=== PATIENT | female | born 1935 | race Native Hawaiian/Other Pacific Islander ===

== ENCOUNTER 2017-03-12 15:39 | Outpatient (CLI) | payer OTHER ==
[2017-03-12 16:18] LABS: PLATELET COUNT 359 K/uL (152-353)
[2017-03-12 16:35] LABS: POTASSIUM 4.8 mmol/L (3.6-5.2)
== END 2017-03-12 16:40 | disposition home or self-care (01) ==
LOC: LAB 15:39
PROVIDERS: Nurse Practitioner Family
DX: Z00.00 Encounter for general adult medical examination without abnormal findings (principal); E55.9 Vitamin D deficiency, unspecified; R53.83 Other fatigue; E83.42 Hypomagnesemia; D64.89 Other specified anemias; Z79.899 Other long term (current) drug therapy; Z51.81 Encounter for therapeutic drug level monitoring; R73.9 Hyperglycemia, unspecified
CPT/HCPCS: 80053; 80061; 82306; 82607; 83036; 84436; 84443; 85027

== ENCOUNTER 2017-12-24 15:49 | Outpatient (CLI) | payer OTHER ==
[2017-12-24 16:23] LABS: PLATELET COUNT 361 K/uL (152-353)
[2017-12-24 16:52] LABS: POTASSIUM 4.1 mmol/L (3.6-5.2)
== END 2017-12-24 22:14 | disposition home or self-care (01) ==
LOC: LAB 15:49
PROVIDERS: Nurse Practitioner Family
DX: M79.605 Pain in left leg (principal); E55.9 Vitamin D deficiency, unspecified; D64.89 Other specified anemias; R53.83 Other fatigue; E83.42 Hypomagnesemia; E78.4 Other hyperlipidemia; R79.89 Other specified abnormal findings of blood chemistry
CPT/HCPCS: 80053; 80061; 82306; 83036; 83735; 84436; 84443; 85027

== ENCOUNTER 2019-07-26 11:24 | Outpatient (CLI) | payer OTHER ==
[2019-07-26 11:49] LABS: PLATELET COUNT 335 K/uL (152-353)
[2019-07-26 12:00] LABS: POTASSIUM 4.3 mmol/L (3.6-5.2); SODIUM 141 mmol/L (136-145)
== END 2019-07-26 23:20 | disposition home or self-care (01) ==
LOC: LABW 11:24
PROVIDERS: Nurse Practitioner Family
DX: R91.1 Solitary pulmonary nodule (principal); L02.416 Cutaneous abscess of left lower limb; F41.1 Generalized anxiety disorder
CPT/HCPCS: 36415; 80053; 82550; 82553; 84484; 85027

== ENCOUNTER 2019-08-01 13:22 | Observation (INO) | payer OTHER ==
[~2019-08-01] VITALS: Ht 160 cm; Wt 71.7 kg
[2019-08-01 13:29] VITALS: BP 154/88; TEMP 97.9
[2019-08-01 14:34] LABS: PLATELET COUNT 349 K/uL (152-353)
[2019-08-01 14:46] LABS: POTASSIUM 3.9 mmol/L (3.6-5.2)
[2019-08-01 14:53] LABS: PARTIAL THROMBOPLASTIN TIME 37.4 SECONDS (24.5-33.6)
[2019-08-01 17:09] VITALS: BP 136/56; TEMP 98.4; Ht 160 cm; Wt 71.7 kg
[2019-08-01 19:15] VITALS: BP 152/84
[2019-08-01 19:45] VITALS: BP 122/51
[2019-08-01 20:45] VITALS: BP 136/44
[2019-08-01 22:45] VITALS: BP 129/48
[2019-08-01] MEDS ORDERED: TRAMADOL HYDROC50 MG PO (23:13)
[2019-08-01] MEDS ORDERED: MELATONIN5 M2 PO (23:13)
[2019-08-01] MEDS ORDERED: DIPH25CA90 PO (23:15)
[2019-08-02] VITALS (9 sets, daily range): BP systolic 116–153; BP diastolic 49–58; TEMP 98.1–100.4
[2019-08-02] MEDS ORDERED: NUCYNTA50 MG PO (06:33)
[2019-08-02 10:26] LABS: PLATELET COUNT 340 K/uL (152-353)
[2019-08-02 10:27] LABS: POTASSIUM 3.5 mmol/L (3.6-5.2)
== END 2019-08-02 10:30 | disposition short-term general hospital (02) ==
LOC: ED 13:22 → MED/SURG 14:50
PROVIDERS: Family Medicine; ADMIT Hospitalist
DX: J18.8 Other pneumonia, unspecified organism (principal); I47.1 Supraventricular tachycardia; R42 Dizziness and giddiness; R07.89 Other chest pain; R06.02 Shortness of breath; G89.29 Other chronic pain
CPT/HCPCS: 36415; 80053; 82550; 82805; 83605; 83880; 84484; 85027; 85610; 85730; 87040; 87070; 87077; 87185; 87205; 90658; 93005; 94640; 94664; 94760; 96360; 96365; 96366; 96367; 96372; 96374; 96375; 99220; 99284; G0378; J0282; J0456; J0696; J1650; J2060; J2405; J3370; J3490

== ENCOUNTER 2019-08-02 14:25 | Outpatient (CLI) | payer OTHER ==
[~2019-08-02 14:25] MED LIST: DIPH25CA90 PO; MELATONIN5 M2 PO; NUCYNTA50 MG PO; TRAMADOL HYDROC50 MG PO
== END 2019-08-02 15:53 | disposition short-term general hospital (02) ==
LOC: AMB 14:25
DX: J18.9 Pneumonia, unspecified organism (principal)
CPT/HCPCS: A0425; A0429

== ENCOUNTER 2021-06-04 11:47 | Outpatient (CLI) | payer OTHER | END 2021-06-04 22:42 | disposition home or self-care (01) | LOC: RAD 11:47 | PROVIDERS: ATTEND Nurse Practitioner Family | DX: R06.09 Other forms of dyspnea (principal); J90 Pleural effusion, not elsewhere classified | CPT/HCPCS: 36415; 82565; 84520; Q9963 ==